=== PATIENT | female | born 1970 | race Caucasian/White ===

== ENCOUNTER 2024-11-29 22:04 | Inpatient (IN) | payer OTHER, SELFPAY ==
[2024-11-29 14:04] VITALS: BP 154/80
[2024-11-29 14:31] LABS: % Basophils 0.3 % (0-2); % Eosinophils 0.3 % (0-6); % Immature Granulocytes 0.3 % (0-0.5); % Lymphocytes 14.1 % (20.5-51.1); % Monocytes 8.5 % (1.7-9.3); % Neutrophils 76.5 % (42.2-75.2); Absolute Lymphocytes 1.9 10^3/uL (1.2-3.4); Absolute Monocytes 1.2 10^3/uL (0.1-0.6); Absolute Neutrophils 10.6 10^3/uL (1.4-6.5); Hematocrit 43.4 % (37.0-47.0); Hemoglobin 15.2 g/dL (12.0-16.0); Mean Corpuscular Volume 85.8 fL (81.0-99.0); Mean Platelet Volume 8.4 fL (7.4-10.4); Nucleated Red Blood Cells % 0 %; Platelet Count 480 10^3/uL (130-400); Red Blood Cell Count 5.06 10^6/uL (4.20-5.40); Red Cell Dist. Width 12.7 % (11.5-14.5); White Blood Cell Count 13.8 10^3/uL (4.8-10.8)
[2024-11-29 14:39] LABS: ALT (SGPT) 29 U/L (0-35); AST (SGOT) 19 U/L (14-36); Albumin 4.4 g/dl (3.5-5.0); Alkaline Phosphatase 71 U/L (38-126); Blood Urea Nitrogen 14 mg/dl (7-17); Carbon Dioxide 25 mmol/L (22-30); Chloride 105 mmol/L (98-107); Glucose 134 mg/dl (70-99); Potassium 5.2 mmol/L (3.5-5.1); Sodium 141 mmol/L (135-145); Total Bilirubin 0.9 mg/dl (0.2-1.3); Total Protein 7.5 g/dl (6.3-8.2); eGFR > 60.00
--- NOTE | 2024-11-29 16:35 | ED.GENMED ---
History of Present Illness
General
Chief Complaint: Oral/Mouth Problem
Source: patient
Exam Limitations: none
Time Seen by Provider: 11/29/24 16:04
Nursing documentation reviewed up to this point in time: agreed with
History of Present Illness
History of Present Illness:
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 Has been on
Bactrim since yesterday took a total of 3 doses. Denies any fevers has noticed swelling extending into her neck and lower jaw. Denies any chest pain shortness of breath
Review of Systems
Review of Systems
Allergies reviewed?: Yes
All Other Systems: ROS reviewed and negative except as documented in HPI and ROS
Phy Exam
Physical Exam
Physical Exam:
GENERAL: Alert , in no apparent distress
EYE: pupils equal and reactive
NECK: Supple, no significant adenopathy.
ENT: Swelling tenderness palpation to left lower lip no spontaneous drainage redness and swelling into the left chin and left lower jaw and left upper neck. o/p clr, mmm.
CARDIAC: Regular rate and rhythm .
LUNGS: Clear breath sounds bilaterally, no acute respiratory distress, no wheezes/rales/rhonchi
ABDOMEN: Soft, without focal tenderness, no r/g, no cvat
NEUROLOGICAL: Alert and oriented, no focal neuro deficits
SKIN: Warm and dry, skin intact.
MUSCULOSKELETAL: No edema, well perfused.
PSYCH: Normal and appropriate interaction.
Course
Orders/Labs/Results
Orders:
Orders
11/29/24 14:15
Complete Blood Count/With Diff Urgent
Comprehensive Metabolic Panel Urgent
Blood Culture Urgent
HIMANSHU Source: Blood/Venous
Specimen Description:
11/29/24 16:26
CT Facial Bones W/ Iv Contrast Urgent
Comment:
Reason For Exam: jaw lip abscess ext to chin neck
11/29/24 16:27
Vancomycin [Vancocin] 2,000 mg 0.9% Sodium Chloride 500 ml [Nss] 500 ml IV NOW
11/29/24 16:32
Lidocaine/Epinephrine/Tetracai [Let Topical Anesthetic Gel] 3 ml TOPICAL NOW STA
11/29/24 16:43
Ampicillin/Sulbactam 3 G [Unasyn] 3 gm 0.9% Sodium Chloride 100 ml [Nss] 100 ml IV NOW
11/29/24 18:02
HYDROmorphone [Dilaudid] 0.5 mg IV NOW STA
11/29/24 18:08
Wound Culture [Wound/Abscess/Other Culture] Urgent
HIMANSHU Source: Face
Specimen Description: Left
Date Specimen was Collected: 11/29/24
Time Specimen was Collected: 18:01
Abnormal Lab Results
11/29/24
14:15
WBC 13.8 H 10^3/uL
(4.8-10.8)
Plt Count 480 H 10^3/uL
(130-400)
Absolute Neuts (auto) 10.6 H 10^3/uL
(1.4-6.5)
Absolute Monos (auto) 1.2 H 10^3/uL
(0.1-0.6)
Neutrophils % 76.5 H %
(42.2-75.2)
Lymphocytes % 14.1 L %
(20.5-51.1)
Potassium 5.2 H mmol/L
(3.5-5.1)
Glucose 134 H mg/dl
(70-99)
11/29/24 14:15
11/29/24 14:15
Vital Signs
Initial and Last Documented VS:
Initial Vital Signs
Temp Pulse Resp BP Pulse Ox
97.9 F 106 18 154/80 98
11/29/24 14:04 11/29/24 14:04 11/29/24 14:04 11/29/24 14:04 11/29/24 14:04
Last Documented Vital Signs
Temp Pulse Resp BP Pulse Ox
98.6 F 102 18 122/75 99
11/29/24 19:48 11/29/24 19:48 11/29/24 19:48 11/29/24 19:48 11/29/24 19:48
Procedures
Incision/Drainage/Joint Aspiration
Left Lower Face:
Anethesia: topical- LET and 1% Lidocaine
Preparation: cleaned with soap & water
Type of procedure: incise and drain
Nature of site: abscess
Description of abscess: less than 3cm
Loculations broken up: Yes
How much fluid was obtained?: small amount
Fluid description: purulent
Treatment: left open for drainage
MDM/Problems Addressed
MDM/Problems Addressed:
53-year-old female presenting to the emergency department today with concerns of left lip swelling. Appears to consistent with an abscess. She has been on Bactrim for 2 days without improvement. Swelling is now extending into the left neck.
Initially tachycardic here white count of 13.8. Patient does have significant swelling fluctuance induration to the left lower lip. This was anesthetized and drained with a moderate amount of purulence. CT scan of the face was performed that
showed significant soft tissue edema to the left anterior jaw and mandible without obvious additional collection. Plan to admit for further antibiotic considering failed outpatient management and considerable cellulitis to the face and neck.
*Critical Care Note
Total Time (30-74mins, 75-104mins- exclusive of procedures): Not Applicable
ED Attending Note
-
Portions of this chart may have been created with voice recognition software.� Occasional wrong word or��sound alike� substitutions may have occurred due to the inherent limitations of voice recognition software.
Discharge Plan
Departure
Patient Disposition: Admit
Date of Disposition: 11/29/24
Time of Disposition: 20:09
Admit to: Med/Surg
Admit to doctor: Christopher
Presentation/result/management discussed w/ accepting MD/DO: Hospitalist
Patient with high blood pressure during this ER visit?: No
Condition: Good
Covid-19: Not Applicable
Discharge Problem:
Lip abscess, Cellulitis of face
Prescriptions:
No Action
famotidine 40 mg Tablet
40 mg PO HS
sulfamethoxazole-trimethoprim [Bactrim DS] 800-160 mg Tablet
1 tab PO BID
acetaminophen [Tylenol Extra Strength] 500 mg Tablet
1,000 mg PO Q6HPRN PRN (Reason: mild pain)
ibuprofen [Advil] 200 mg Tablet
400 mg PO Q6HPRN PRN (Reason: mild pain)
levothyroxine 200 mcg Tablet
200 mcg PO DAILY
mupirocin 2 % Ointment
1 applic TOPICAL BID
omeprazole 20 mg Capsule,Delayed Release(Dr/Ec)
20 mg PO DAILY
semaglutide
1 dose SC TH
Patient Comments:
11/29/24: Patient gets compouded online from [employer], unable to get/confirm current dosage.
Referrals:
Jazmín Rey CRNP [Family Provider] -
Interventions
Interventions:
*Risk Screen - Suicide Last Done: 11/29/24 14:04
*General Assessment Last Done: 11/29/24 14:04
*Neglect/Abuse Screening Last Done: 11/29/24 14:04
*ED COVID-19 Vaccine History Last Done: 11/29/24 14:04
Discharge Date and Time
Print Language: ICELANDIC
[2024-11-29 17:03] VITALS: BMI 27.7
[2024-11-29 17:12] VITALS: BP 137/85
[2024-11-29] MEDS: LET TOPICAL ANESTHETIC GEL 3 ML TOPICAL (17:19)
[2024-11-29] MEDS: UNASYN IV (17:22)
[2024-11-29] MEDS: DILAUDID 0.5 MG IV (18:05)
[2024-11-29] MEDS: VANCOCIN 540 MG IV (18:12)
[2024-11-29 19:48] VITALS: BP 122/75
--- NOTE | 2024-11-29 20:04 | HPS.HSE ---
Addendum entered and electronically signed by Latrell White DO 11/29/24 21:07:
Patient seen and examined independently. Agree with findings and plan as set forth by [employer].
Patient is a 53y F with PMH significant for hypothyroidism who presents c/o L facial pain, swelling and redness. Patient notes that symptoms started two days ago with a small, purulent lesion on the L lower lip. No known injury, trauma, etc.
Patient was seen by Dermatology and the area was lanced in the office. She was started on Bactrim and has taken 3 doses thus far. Patient woke this AM with significantly increased swelling and pain with pain and edema extending into the chin and L
cheek. Patient presented to the ED and had local incision with drainage of purulent material from the lip. She is having significant pain and shaking chills. No noted fever.
Ass:
L Lip / Facial Cellulitis
Sepsis secondary to the above
Hypothyroidism
GERD
Plan:
Admit for further evaluation and treatment.
Continue IV vancomycin pending culture data.
Supportive care including IVFs, pain control, cold application, etc.
Follow for clinical improvement.
CT done in the ED with no evidence of underlying fluid collection, abscess, etc.
Original Note:
Family Physician
-
Family Physician: Jazmín Rey
Chief Complaint
-
facial swelling and pain
History of Present Illness
Patient is a 53-year-old female with past medical history significant for hypothyroidism and GERD who presented to [facility] ED for evaluation of left sided facial swelling and pain. Patient reports 5 days ago she had a small pimple like
area on left lower lip, over weekend in grew slightly in size with discomfort so she made an appointment and saw dermatology yesterday who was able to drain some pus and prescribed Bactrim BID. This morning patient reports she had discomfort from
left lower lip to center of chin to lower left ear. 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 Patient reports significant pain and pressure to are. She denies any fever, chills, cough, shortness of breath, nausea,
vomiting, constipation, diarrhea or urinary symptoms. Patient notes she had similar lesion to left upper lip in end of October that was effectively treated with Bactrim.
Medical History
Past Medical History
Past Medical History: Reports Other
Additional Past Medical History:
hypothyroidism
GERD
Past Surgical History: Reports Other
Additional Past Surgical History:
appendectomy
hemorrhoidectomy
breast implants
removal of breast implants
Social History
Tobacco: Non-smoker
Alcohol: Occasional
Drug: None
Living: With Family
Employment: Employed
Family History
Family History: Other (Mother: mitral valve prolapse; Father: DM, glaucoma )
Allergies / Home Medications
Allergies reflects when Allergies were last updated in [facility].
Home Medications with original date entered in [facility]
Allergy/Medication List:
Allergies
Allergy/AdvReac Type Severity Reaction Status Date / Time
cephalexin monohydrate Allergy rash as Verified 11/29/24 17:02
[From Keflex] child,
tolerates
cefuroxime
Penicillins Allergy rash as a Verified 11/29/24 17:02
child
Home Medications
acetaminophen 500 mg tablet (Tylenol Extra Strength) 1,000 mg PO Q6HPRN PRN mild pain 11/29/24
famotidine 40 mg tablet 40 mg PO HS 11/29/24
ibuprofen 200 mg tablet (Advil) 400 mg PO Q6HPRN PRN mild pain 11/29/24
levothyroxine 200 mcg tablet 200 mcg PO DAILY 11/29/24
mupirocin 2 % topical ointment 1 applic topical BID lips 11/29/24
omeprazole 20 mg capsule,delayed release 20 mg PO DAILY 11/29/24
semaglutide 1 dose SC TH 11/29/24
sulfamethoxazole 800 mg-trimethoprim 160 mg tablet (Bactrim DS) 1 tab PO BID 11/29/24
Review of Systems
-
History Source: Patient
Constitutional: Reports No Symptoms
EENT: Reports Mouth Pain and Mouth Swelling (exterior left lower lip, to center of chin, extending up jaw line to left lower ear )
Respiratory: Reports No Symptoms
Cardiac: Reports No Symptoms
Abdomen/GI: Reports No Symptoms
: Reports No Symptoms
Musculoskeletal: Reports No Symptoms
Skin: Reports No Symptoms
Neurological: Reports No Symptoms
Endocrine: Reports No Symptoms
Hematologic/Lymphatic: Reports No Symptoms
Psych: Reports No Symptoms
Physical Exam
Vital Signs
Vital Signs
Temp Pulse Resp BP Pulse Ox
98.6 F 102 18 122/75 99
11/29/24 19:48 11/29/24 19:48 11/29/24 19:48 11/29/24 19:48 11/29/24 19:48
Physical Exam
General: Well Developed, Well Nourished, Conversant and Pain
HEENT: NormoCephalic, Moist mucous membranes, [place] Conjunctivae, Nose Appears Normal, Ears Appear Normal and Other (erythema with edema to exterior left lower lip, extending to center of chin, extending up jaw line to left lower ear )
Respiratory: Clear
Cardiac: S1/S2 and Regular Rhythm
Breast: Deferred by me
GI: Soft, Non Tender, Non Distended and Normal Bowel Sounds; No Organomegaly
Rectal: Deferred by Provider
Genito-urinary: Deferred by me
Musculoskeletal: No Clubbing, No Cyanosis and No Edema
Skin: No Rash
Neuro: Awake, Alert, AO x 3 and Nonfocal/grossly intact
Psych: Calm and Intact Judgment/Insight
Laboratory Results
-
11/29/24 14:15
11/29/24 14:15
Laboratory Results
Total Bilirubin 0.9 mg/dl (0.2-1.3) 11/29/24 14:15
AST 19 U/L (14-36) 11/29/24 14:15
ALT 29 U/L (0-35) 11/29/24 14:15
Alkaline Phosphatase 71 U/L (38-126) 11/29/24 14:15
Data Reviewed
-
CT Scan: Report Reviewed by me (Facial bones: 1. Moderate soft tissue edema over the anterior and left anterior jaw/mandible soft tissues consistent with cellulitis. No loculated fluid collections.)
Lab Data: Labs Reviewed by me (WBC 13.8, Neut 76.5)
Impression/Plan
-
IMPRESSION/PLAN:
#cellulitis
erythema and edema to exterior left lower lip, to center of chin, extending up jaw line to left lower ear
WBC 13.8, Neut 76.[address]: 1. Moderate soft tissue edema over the anterior and left anterior jaw/mandible soft tissues consistent with cellulitis. No loculated fluid collections.
Wound Cx: pending
Blood Cx: pending
- Admit to med/surg
- IV Clindamycin
- Ice packs PRN
- pain regimen
#hypothyroidism
- continue levothyroxine
#GERD
- continue famotidine and omeprazole
Code status: full code
DVT Prophylaxis: Lovenox Sq
[2024-11-29] MEDS: TYLENOL 1000 MG PO (20:33)
[2024-11-29] MEDS: BENADRYL 25 MG IV (21:27)
[2024-11-29 21:28] VITALS: BP 109/65
--- NOTE | 2024-11-29 21:30 | EDRN ---
the pt stated after Tylenol, her lower left lip pain is much improved 3/10 and she does not want to take the ordered dose of Dilaudid 0.5mg IVP STAT at this time, she wants to wait until later.
[2024-11-29 22:10] VITALS: BP 105/76; BMI 28.7
[2024-11-29] MEDS: NSS 1000 IV (22:26)
[2024-11-29] MEDS: PEPCID 40 MG PO (22:26)
[2024-11-29] MEDS: TORADOL 10 MG IV (22:32)
[2024-11-30] MEDS: TORADOL 10 MG IV ×2 (04:40→12:43)
[2024-11-30] MEDS: SYNTHROID 200 MCG PO (05:26)
[2024-11-30] MEDS: TYLENOL 650 MG PO ×3 (05:31→18:13)
[2024-11-30] MEDS: NSS 1000 IV (05:32)
[2024-11-30] MEDS: PROTONIX PO (07:38)
[2024-11-30 07:55] VITALS: BP 116/64
[2024-11-30 08:38] LABS: Hematocrit 33.6 % (37.0-47.0); Hemoglobin 11.9 g/dL (12.0-16.0); Mean Corp Hgb Conc. 35.4 g/dL (33.0-37.0); Mean Corpuscular Hgb 30.5 pg (27.0-31.0); Mean Corpuscular Volume 86.2 fL (81.0-99.0); Mean Platelet Volume 8.7 fL (7.4-10.4); Platelet Count 399 10^3/uL (130-400); Red Cell Dist. Width 12.7 % (11.5-14.5); White Blood Cell Count 11.5 10^3/uL (4.8-10.8)
--- NOTE | 2024-11-30 09:30 | PHA.VAN.IN ---
Assessment
- Assessment
Renal Function: Appears similar to baseline
AUC Dosing Plan
- Dosing Variables
Dosing Weight (kg): 71
Dosing CrCl (ml/min): 66
Vd coefficient (L/kg): 0.7
- Empiric Dosing
Initial / Loading Dose: 2000mg - 11/29 18:12
Maintenance Regimen: Vanc 750mg Q12H - give 500mg x1 now and start at 1800
Estimated AUC (mcg*h/mL): 525
Estimated Peak (mcg*h/mL): 29.7
Estimated Trough (mcg/ml): 15.5
Estimated Half Life (H): 11.7
- Monitoring
No levels ordered at this time: consider levels in next few days, follow SCR
Pharmacokinetics Vancomycin I
- -
Patient Age: 53
Patient Sex: Female
Vancomycin Day #: 1
Indication: Skin And Soft Tissue
Requesting Provider: Ruth Rodriguez
Pertinent Antimicrobial Allergies:
cephalexin - rash as a child, tolerates cefuroxime
penicillin - rash as a child
Height / Weight:
Height 5 ft 2 in
Actual Weight 70.987 kg
- Vital Signs / Lab Results
Temp Pulse Resp BP Pulse Ox
97.9 F 81 18 116/64 96
11/30/24 07:55 11/30/24 07:55 11/30/24 07:55 11/30/24 07:55 11/30/24 07:55
Lab Results - Hematology
11/29/24 11/30/24
14:15 06:32
WBC 13.8 H 11.5 H
Lab Results - Chemistry
11/29/24
14:15
BUN 14
Creatinine 0.9
Albumin 4.4
[2024-11-30] MEDS: VANCOCIN HCL 500 MG 100 IV (10:17)
[2024-11-30] MEDS: DILAUDID 0.5 MG IV (10:21)
--- NOTE | 2024-11-30 11:46 | W.PN.HOSP.TC ---
Today's Communication/Plan
-
cont IV vancomycin-pharmacy to dose
ice pack
monitor diet tolerance
Assessment / Plan
Assessment / Plan
General: Well Developed, Well Nourished, Conversant and Pain
HEENT: NormoCephalic, Moist mucous membranes, [place] Conjunctivae, Nose Appears Normal, Ears Appear Normal and Other (erythema with edema to exterior left lower lip, extending to center of chin, extending up jaw line to left lower ear )
Respiratory: Clear
Cardiac: S1/S2 and Regular Rhythm
Breast: Deferred by me
GI: Soft, Non Tender, Non Distended and Normal Bowel Sounds; No Organomegaly
Rectal: Deferred by Provider
Genito-urinary: Deferred by me
Musculoskeletal: No Clubbing, No Cyanosis and No Edema
Skin: No Rash
Neuro: Awake, Alert, AO x 3 and Nonfocal/grossly intact
Psych: Calm and Intact Judgment/Insight
#L Lip / Facial Cellulitis
Facial bones CT: 1. Moderate soft tissue edema over the anterior and left anterior jaw/mandible soft tissues consistent with cellulitis. No loculated fluid collections.
Wound Cx from ER w/MRSA prelim
Blood Cx: pending
-After initial lesion with started on the lower lip patient went to dermatology status post lancing. Took 3 dose of Bactrim without improvement and was recommended to come into the hospital.
- IV vancomycin. Appreciate pharmacy managing dosing.
- Ice packs PRN
- pain regimen
#hypothyroidism
- continue levothyroxine
#GERD
- continue famotidine and omeprazole
#Mild hyperkalemia
-repeat bmp
Anticipated Discharge: 24 - 48 hours
Subjective/Interval History
-
Date of Service: November 30, 2024
States of left side lower face swelling and lip swelling
eating soft food
Objective Data
-
Labs:
Laboratory Results
11/30/24
06:32
WBC 11.5 H
Hgb 11.9 L D
Hct 33.6 L
Plt Count 399
Vital Signs:
Vital Signs
Temp Pulse Resp BP Pulse Ox
97.9 F 81 18 116/64 98
11/30/24 07:55 11/30/24 07:55 11/30/24 07:55 11/30/24 07:55 11/30/24 11:30
I&O
11/29/24 11/30/24 12/01/24
06:59 06:59 06:59
Intake Total 480 / 480
Balance 480 / 480
[2024-11-30 15:08] LABS: Blood Urea Nitrogen 10 mg/dl (7-17); Calcium 8.6 mg/dl (8.4-10.2); Carbon Dioxide 26 mmol/L (22-30); Chloride 108 mmol/L (98-107); Estimated Creatinine Clearance 74 ml/min; Glucose 96 mg/dl (70-99); Potassium 4.5 mmol/L (3.5-5.1); Sodium 139 mmol/L (135-145); eGFR > 60.00
--- NOTE | 2024-11-30 15:13 | CM ---
Patient seen bedside.
IA completed.
Patient lives with spouse in a 2 story home.
Independent prior to admission.
Patient drives and works.
No hx VN or skilled rehab.
Patient aware of CM availability should home care needs arise.
PCP: Candido
Pharmacy: [facility]
Plan: home no needs anticipated
[2024-11-30 16:04] VITALS: BP 105/63
[2024-11-30] MEDS: LOVENOX 40 MG SC (18:11)
[2024-11-30] MEDS: MORPHINE SULFATE 1 MG IV (18:12)
[2024-11-30] MEDS: VANCOCIN 150 IV (18:14)
[2024-11-30] MEDS: TORADOL 30 MG IV (18:30)
[2024-11-30 19:59] VITALS: BP 123/78
--- NOTE | 2024-11-30 20:00 | PTCARENOTE ---
patient arrived from [facility] due to needing a private room for + MRSA culture results. patient ambulatory with no devices. complains of improved pain due to IV Toradol and Tylenol administration. VSS. IV Vanco completed, patient informed that next
vanco dose is due 12/01 at 0600. Left lower lip and jaw with +2 edema, warm to the touch and red. Patient with positive appetite. Denies nausea/vomiting/diarrhea. All patient needs met. Bed in lowest position. No bed alarm in place. Call archuleta and
personal belongings within reach.
[2024-11-30] MEDS: PEPCID 40 MG PO (20:44)
[2024-12-01 00:05] VITALS: BP 103/73
[2024-12-01] MEDS: TYLENOL 650 MG PO ×2 (00:47→16:54)
[2024-12-01] MEDS: TORADOL 30 MG IV ×3 (01:48→18:21)
[2024-12-01] MEDS: SYNTHROID 200 MCG PO (05:48)
[2024-12-01] MEDS: VANCOCIN 150 IV ×2 (05:48→16:59)
[2024-12-01 07:00] VITALS: BP 117/81
[2024-12-01] MEDS: PROTONIX 40 MG PO (08:39)
[2024-12-01 09:21] LABS: % Basophils 0.4 % (0-2); % Eosinophils 2.1 % (0-6); % Immature Granulocytes 0.4 % (0-0.5); % Lymphocytes 24.2 % (20.5-51.1); % Monocytes 14.3 % (1.7-9.3); % Neutrophils 58.6 % (42.2-75.2); Absolute Eosinophils 0.1 10^3/uL (0-0.7); Absolute Lymphocytes 1.6 10^3/uL (1.2-3.4); Absolute Neutrophils 3.9 10^3/uL (1.4-6.5); Hemoglobin 12.4 g/dL (12.0-16.0); Mean Corp Hgb Conc. 34.4 g/dL (33.0-37.0); Mean Corpuscular Volume 87.2 fL (81.0-99.0); Mean Platelet Volume 8.4 fL (7.4-10.4); Nucleated Red Blood Cells % 0 %; Platelet Count 408 10^3/uL (130-400); Red Blood Cell Count 4.13 10^6/uL (4.20-5.40); Red Cell Dist. Width 12.7 % (11.5-14.5); White Blood Cell Count 6.7 10^3/uL (4.8-10.8)
[2024-12-01 09:50] LABS: Blood Urea Nitrogen 9 mg/dl (7-17); Calcium 9.3 mg/dl (8.4-10.2); Carbon Dioxide 25 mmol/L (22-30); Chloride 107 mmol/L (98-107); Estimated Creatinine Clearance 99 ml/min; Glucose 95 mg/dl (70-99); Potassium 4.8 mmol/L (3.5-5.1); Sodium 141 mmol/L (135-145); eGFR > 60.00
--- NOTE | 2024-12-01 10:20 | PHA.VAN.FU ---
Vancomycin Assessment / Plan
- Assessment
Renal Function: Stable (0.6)
WBC's are: WNL
In the past 24 hrs, patient has been: Afebrile
- Dosing Plan
Continue: vancomycin 750 mg q12h
- Monitoring Plan
No level(s) ordered at this time: consider levels in next few days
- Follow Up
Pharmacy will continue to follow.
Vancomycin Follow UP
- -
Patient Age: 53
Patient Sex: Female
Vancomycin Day #: 2
Indication: Skin And Soft Tissue
Requesting Provider: Ruth Rodriguez
Pertinent Antimicrobial Allergies:
cephalexin - rash as a child, tolerates cefuroxime
penicillin - rash as a child
Height / Weight:
Height 5 ft 2 in
Actual Weight 70.987 kg
- Vital Signs / Lab Results
Temp Pulse Resp BP Pulse Ox
98.8 F 81 18 103/73 95
12/01/24 00:05 12/01/24 00:05 12/01/24 00:05 12/01/24 00:05 12/01/24 00:05
Lab Results - Hematology
11/29/24 11/30/24 12/01/24
14:15 06:32 09:03
WBC 13.8 H 11.5 H 6.7
Lab Results - Chemistry
11/29/24 11/30/24 12/01/24
14:15 14:08 09:03
BUN 14 10 9
Creatinine 0.9 0.8 0.6
Estimated Creat Clear 74 99
Albumin 4.4
Microbiology Results
11/29/24 18:08 Wound Culture - Final
Face - Left Staph aureus MRSA
Gram Stain - Final
11/29/24 14:15 Blood Culture - Preliminary
Blood/Venous Staph aureus MRSA
Gram Stain - Preliminary
--- NOTE | 2024-12-01 12:53 | W.PN.HOSP.TC ---
Today's Communication/Plan
-
IV vanc
TTE
Await culture
ID input
cont precautions
Assessment / Plan
Assessment / Plan
General: Well Developed, Well Nourished, Conversant and Pain
HEENT: NormoCephalic, Moist mucous membranes, [place] Conjunctivae, Nose Appears Normal, Ears Appear Normal and Other (encrusting lesion to lower lip, with erythema and mild drainge. Left side jaw line edema improved)
Respiratory: Clear
Cardiac: S1/S2 and Regular Rhythm
Breast: Deferred by me
GI: Soft, Non Tender, Non Distended and Normal Bowel Sounds; No Organomegaly
Rectal: Deferred by Provider
Genito-urinary: Deferred by me
Musculoskeletal: No Clubbing, No Cyanosis and No Edema
Skin: No Rash
Neuro: Awake, Alert, AO x 3 and Nonfocal/grossly intact
Psych: Calm and Intact Judgment/Insight
#L Lip / Facial Cellulitis/MRSA bacteremia
Facial bones CT: 1. Moderate soft tissue edema over the anterior and left anterior jaw/mandible soft tissues consistent with cellulitis. No loculated fluid collections.
Wound Cx from ER w/MRSA
-After initial lesion with started on the lower lip patient went to dermatology status post lancing. Took 3 dose of Bactrim without improvement and was recommended to come into the hospital.
- IV vancomycin. Appreciate pharmacy managing dosing.
- Ice packs PRN
- pain regimen
- seems only 1 set of Bcx checked on admission-positive for MRSA.
- Surveillance culture ordered and in lab
- wound culture susceptibility noted sensitive to vancomycin. Unclear if plan for daptomycin
- Leukocytosis resolved.
- ECHO
- ID eval
#hypothyroidism
- continue levothyroxine
#GERD
- continue famotidine and omeprazole
#Mild hyperkalemia
-resolved.
d/w with spouse at bedside
DVT ppx-lovenox
Anticipated Discharge: > 48 hours
Subjective/Interval History
-
Date of Service: December 01, 2024
appetite has improved
encrusting of lip wound
swelling of jaw has improved
Objective Data
-
Labs:
Laboratory Results
12/01/24
09:03
WBC 6.7
Hgb 12.4
Hct 36.0 L
Plt Count 408 H
Sodium 141
Potassium 4.8
Chloride 107
Carbon Dioxide 25
BUN 9
Creatinine 0.6
Glucose 95
Calcium 9.3
Vital Signs:
Vital Signs
Temp Pulse Resp BP Pulse Ox
97.8 F 77 18 117/81 96
12/01/24 07:00 12/01/24 07:00 12/01/24 07:00 12/01/24 07:00 12/01/24 07:00
I&O
11/30/24 12/01/24 12/02/24
06:59 06:59 06:59
Intake Total 480 / 480 580 / 580
Balance 480 / 480 580 / 580
Data Reviewed
-
Total Time Spent with Patient (in minutes): 55
[2024-12-01 15:00] VITALS: BP 141/86
--- NOTE | 2024-12-01 15:25 | CON.ID ---
Consultation
-
Date/Time Consultation Requested: December 01, 2024 0847
Date/Time Consultation Performed: December 01, 2024 1526
Requesting Provider: Dr. Og Pierce
Performing Provider: Dr. Batsheva Baldwin
Reason for Consultation: Facial cellulitis
Chief Complaint / Past History
Chief Complaint
Abscess on lip
History of Present Illness
53-year-old female with history of hypothyroidism who presented to the hospital November 29 due to spreading erythema and enlarging lesion over lower lip. She reports that she was recently in [place] for vacation and she went to a spa for facial. Soon
after she developed an abscess over her left upper lip 2 weeks ago. Her PCP recommended warm compress and prescribed Bactrim with subsequent resolution of the abscess. However last Wednesday a pimple-like lesion developed over her left lower lip
which enlarged over the weekend. She did put warm compress without improvement. She went to her invasive cardiovascular technologist on Wednesday who lanced the abscess and she was prescribed Bactrim. Wednesday, she noticed several abscesses on her lower lip and erythema
extended down to her chin and face with significant pain and edema. She went back to her invasive cardiovascular technologist who sent her to the ER. No fever. However patient had shaking chills. In ER the abscess was lanced and drained. CAT scan of the face showed
no deep fluid collection. Culture grew MRSA. She is started on vancomycin yesterday. Admission blood culture 1 set positive for MRSA. She just came back from echocardiogram. Patient denies history of MRSA in the past. She believes that she
contracted MRSA from the facial at [facility].
Past History
Additional Past Medical History:
Hypothyroidism
GERD
Additional Past Surgical History:
Appendectomy
Breast implants with subsequent removal
Hemorrhoidectomy
Allergy History:
cephalexin monohydrate [From Keflex] Allergy (Verified 11/29/24 17:02)
rash as child, tolerates cefuroxime
Penicillins Allergy (Verified 11/29/24 17:02)
rash as a child
Medications Reviewed: Yes
Current Antibiotics:
Vancomycin day 2
Social History
Tobacco: Non-Smoker
Alcohol: Occasional
Drug: None
Personal:
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
Family History
Family History: Not Pertinent
Review of Systems
Review of Systems
General: Chills; Negative Fever
HEENT: Negative Sinus Problems, Headache or Pharyngitis
Cardiovascular: Negative Chest Pain or Dyspnea
Respiratory: Negative Dyspnea or Cough
Gasteroenterology: Negative Nausea, Vomiting or Diarrhea
Genital / Urological: Negative Dysuria
Endocrine: Negative Weakness
Neurological: Negative Headache or Dizziness
All systems: All other systems were reviewed and were negative
Vital Signs
Temp Pulse Resp BP Pulse Ox
97.8 F 77 18 117/81 96
12/01/24 07:00 12/01/24 07:00 12/01/24 07:00 12/01/24 07:00 12/01/24 07:00
Physical Exam
Physical Exam
Constitutional: No Acute Distress and Comfortable
Head: Other (left lower lip with significant induration, drained wound dry, + erythema extends to chin, mild induration left mandible)
Eyes: Sclera Anicteric
Cardiovascular: Regular Rate and S1/S2
Pulmonary: Clear
Gastrointestinal: Non Tender, Non Distended and Normal Bowel Sounds
Genito-Urinary: Negative CVA Tenderness
Extremities: Negative Edema
Neurological: AO x 3
Lab / Diagnostic Study Results
12/01/24 09:03
12/01/24 09:03
Abs Immat Gran (auto) 0.0 10^3/uL (0-0.05) 12/01/24 09:03
Absolute Neuts (auto) 3.9 10^3/uL (1.4-6.5) 12/01/24 09:03
Absolute Lymphs (auto) 1.6 10^3/uL (1.2-3.4) 12/01/24 09:03
Absolute Monos (auto) 1.0 10^3/uL (0.1-0.6) H 12/01/24 09:03
Absolute Basos (auto) 0.0 10^3/uL (0-0.2) 12/01/24 09:03
Immature Gran % 0.4 % (0-0.5) 12/01/24 09:03
Neutrophils % 58.6 % (42.2-75.2) 12/01/24 09:03
Lymphocytes % 24.2 % (20.5-51.1) 12/01/24 09:03
Monocytes % 14.3 % (1.7-9.3) H 12/01/24 09:03
Eosinophils % 2.1 % (0-6) 12/01/24 09:03
Basophils % 0.4 % (0-2) 12/01/24 09:03
Microbiology Results
Micro:
11/29/24 14:15 Blood Culture - Preliminary
Blood/Venous Staph aureus MRSA
Gram Stain - Preliminary
11/29/24 18:08 Wound Culture - Final
Face - Left Staph aureus MRSA
Gram Stain - Final
11/30/24 17:47 Blood Culture - Pending
Blood/Venous
11/30/24 17:47 Blood Culture - Pending
Blood/Venous
12/01/24 CT facial bone: Moderate soft tissue edema over the anterior and left anterior jaw/mandible soft tissues consistent with cellulitis. No loculated fluid collections.
Assessment / Plan
# MRSA abscess left lower lip with cellulitis
# MRSA bacteremia (1 of 1 set)
# Leukocytosis resolved.
- TTE no gross vegetation.
- Follow repeat blood cx's.
- Continue Vancomycin for now (d2)
- Continue warm compress.
[2024-12-01] MEDS: LOVENOX 40 MG SC (16:59)
[2024-12-01] MEDS: PEPCID 40 MG PO (22:01)
[2024-12-01 23:34] VITALS: BP 135/80
[2024-12-02] MEDS: VANCOCIN 150 IV ×2 (05:29→17:15)
[2024-12-02] MEDS: SYNTHROID 200 MCG PO (05:29)
[2024-12-02 06:30] LABS: % Basophils 0.7 % (0-2); % Eosinophils 3.8 % (0-6); % Immature Granulocytes 0.3 % (0-0.5); % Lymphocytes 35.1 % (20.5-51.1); % Monocytes 14.4 % (1.7-9.3); % Neutrophils 45.7 % (42.2-75.2); Absolute Eosinophils 0.2 10^3/uL (0-0.7); Absolute Monocytes 0.8 10^3/uL (0.1-0.6); Absolute Neutrophils 2.6 10^3/uL (1.4-6.5); Hematocrit 34.3 % (37.0-47.0); Hemoglobin 11.9 g/dL (12.0-16.0); Mean Corp Hgb Conc. 34.7 g/dL (33.0-37.0); Mean Corpuscular Hgb 29.9 pg (27.0-31.0); Mean Corpuscular Volume 86.2 fL (81.0-99.0); Mean Platelet Volume 8.4 fL (7.4-10.4); Nucleated Red Blood Cells % 0 %; Platelet Count 405 10^3/uL (130-400); Red Blood Cell Count 3.98 10^6/uL (4.20-5.40); Red Cell Dist. Width 12.4 % (11.5-14.5); White Blood Cell Count 5.8 10^3/uL (4.8-10.8)
[2024-12-02 07:00] VITALS: BP 124/73
[2024-12-02 07:02] LABS: Blood Urea Nitrogen 10 mg/dl (7-17); Calcium 9.1 mg/dl (8.4-10.2); Carbon Dioxide 27 mmol/L (22-30); Chloride 105 mmol/L (98-107); Estimated Creatinine Clearance 85 ml/min; Glucose 105 mg/dl (70-99); Potassium 4.5 mmol/L (3.5-5.1); Sodium 141 mmol/L (135-145); eGFR > 60.00
[2024-12-02] MEDS: TYLENOL 650 MG PO ×3 (07:47→21:21)
[2024-12-02] MEDS: PROTONIX 40 MG PO (07:47)
--- NOTE | 2024-12-02 09:13 | W.PN.ID1 ---
Date of Service
Date of Service: December 02, 2024
Today's Communication
Continue Vancomycin.
Assessment / Plan
# MRSA abscess left lower lip with cellulitis
# MRSA bacteremia (1 of 1 set)
# Leukocytosis resolved.
- TTE no gross vegetation.
- repeat blood cx's x 2 NGTD
- Continue Vancomycin for now (d3)
- Continue warm compress.
Chief Complaint
-: Other (MRSA abscess)
Subjective / Review of Systems
c/o left neck pain
Vital Signs / Physical Exam
Vital Signs
Vital Signs
Temp Pulse Resp BP Pulse Ox
98.1 F 73 18 135/80 97
12/01/24 23:34 12/01/24 23:34 12/01/24 23:34 12/01/24 23:34 12/01/24 23:34
Physical Exam
Constitutional: No Acute Distress and Comfortable
Eyes: No Conjunctival Hemorrhage and Sclera Anicteric
Oropharyngeal: Other (left lower lip abscess wound less indurated, with erythema down chin)
Lymph Nodes: Lymphadenopathy (left cervical chain)
Cardiovascular: Regular Rate
Pulmonary: Clear
Gastrointestinal: Soft, Non Tender, Non Distended and Normal Bowel Sounds
Extremities: Negative Edema
Neurological: AO x 3
Objective Data
Lab Data
Lab Results
12/02/24 05:52
12/02/24 05:52
Estimated Creat Clear 85 ml/min 12/02/24 05:52
Total Bilirubin 0.9 mg/dl (0.2-1.3) 11/29/24 14:15
AST 19 U/L (14-36) 11/29/24 14:15
ALT 29 U/L (0-35) 11/29/24 14:15
Alkaline Phosphatase 71 U/L (38-126) 11/29/24 14:15
Most recent labs reviewed.
Micro Results:
11/29/24 14:15 Blood Culture - Preliminary
Blood/Venous Staph aureus MRSA
Gram Stain - Preliminary
11/30/24 17:47 Blood Culture - Preliminary
Blood/Venous No Growth in 24 hours- Final report to follow
11/30/24 17:47 Blood Culture - Preliminary
Blood/Venous No Growth in 24 hours- Final report to follow
11/29/24 18:08 Wound Culture - Final
Face - Left Staph aureus MRSA
Gram Stain - Final
12/01/24 CT facial bone: Moderate soft tissue edema over the anterior and left anterior jaw/mandible soft tissues consistent with cellulitis. No loculated fluid collections.
--- NOTE | 2024-12-02 10:34 | PHA.VAN.FU ---
Vancomycin Assessment / Plan
- Assessment
Renal Function: Stable
WBC's are: Trending Down
In the past 24 hrs, patient has been: Afebrile
- Dosing Plan
Continue: Vanc 750mg IV Q12H
- Monitoring Plan
Peak Level: 12/02 at 2030
Trough Level: 12/03 at 0530
- Follow Up
Pharmacy will continue to follow.
Vancomycin Follow UP
- -
Patient Age: 53
Patient Sex: Female
Vancomycin Day #: 3
Indication: Skin And Soft Tissue
Requesting Provider: Ruth Rodriguez
Pertinent Antimicrobial Allergies:
cephalexin - rash as a child, tolerates cefuroxime
penicillin - rash as a child
Height / Weight:
Height 5 ft 2 in
Actual Weight 70.987 kg
- Vital Signs / Lab Results
Temp Pulse Resp BP Pulse Ox
97.9 F 78 18 124/73 97
12/02/24 07:00 12/02/24 07:00 12/02/24 07:00 12/02/24 07:00 12/02/24 07:00
Lab Results - Hematology
11/29/24 11/30/24 12/01/24
14:15 06:32 09:03
WBC 13.8 H 11.5 H 6.7
12/02/24
05:52
WBC 5.8
Lab Results - Chemistry
11/29/24 11/30/24 12/01/24
14:15 14:08 09:03
BUN 14 10 9
Creatinine 0.9 0.8 0.6
Estimated Creat Clear 74 99
Albumin 4.4
12/02/24
05:52
BUN 10
Creatinine 0.7
Estimated Creat Clear 85
Albumin
Microbiology Results
11/29/24 14:15 Blood Culture - Preliminary
Blood/Venous Staph aureus MRSA
Gram Stain - Preliminary
11/30/24 17:47 Blood Culture - Preliminary
Blood/Venous No Growth in 24 hours- Final report to follow
11/30/24 17:47 Blood Culture - Preliminary
Blood/Venous No Growth in 24 hours- Final report to follow
11/29/24 18:08 Wound Culture - Final
Face - Left Staph aureus MRSA
Gram Stain - Final
--- NOTE | 2024-12-02 11:36 | W.PN.HOSP.TC ---
Today's Communication/Plan
-
Continue with IV vancomycin
Pharmacy manage dosing
Await surveillance culture results
Warm compresses bid
Vanc dosing level to be checked tonight
Assessment / Plan
Assessment / Plan
General: Well Developed, Well Nourished, Conversant and Pain
HEENT: NormoCephalic, Moist mucous membranes, [place] Conjunctivae, Nose Appears Normal, Ears Appear Normal and Other (encrusting lesion to lower lip, with erythema and mild drainage. Left side jaw line edema resolved. Mild chin erythema and edema
Respiratory: Clear
Cardiac: S1/S2 and Regular Rhythm
Breast: Deferred by me
GI: Soft, Non Tender, Non Distended and Normal Bowel Sounds; No Organomegaly
Rectal: Deferred by Provider
Genito-urinary: Deferred by me
Musculoskeletal: No Clubbing, No Cyanosis and No Edema
Skin: No Rash
Neuro: Awake, Alert, AO x 3 and Nonfocal/grossly intact
Psych: Calm and Intact Judgment/Insight
#L Lip / Facial Cellulitis/MRSA bacteremia
Facial bones CT: 1. Moderate soft tissue edema over the anterior and left anterior jaw/mandible soft tissues consistent with cellulitis. No loculated fluid collections.
Wound Cx from ER w/MRSA
-After initial lesion with started on the lower lip patient went to dermatology status post lancing. Took 3 dose of Bactrim without improvement and was recommended to come into the hospital.
- IV vancomycin. Appreciate pharmacy managing dosing.
- Ice packs PRN
- pain regimen
- seems only 1 set of Bcx checked on admission-positive for MRSA. Susceptibility noted
- Surveillance culture ordered and in lab remains negative so far
- wound culture susceptibility noted sensitive to vancomycin. Unclear if plan for daptomycin
- Leukocytosis resolved.
- ECHO negative for vegetation. Warm compresses recommended BID.
- ID ID following
#hypothyroidism
- continue levothyroxine
#GERD
- continue famotidine and omeprazole
#Mild hyperkalemia
-resolved.
d/w with spouse at bedside on 12/01/2024
DVT ppx-lovenox
Anticipated Discharge: 24 - 48 hours
Subjective/Interval History
-
Date of Service: December 02, 2024
states of mild headache
states of swelling has improved on jaw line
Objective Data
-
Labs:
Laboratory Results
12/02/24
05:52
WBC 5.8
Hgb 11.9 L
Hct 34.3 L
Plt Count 405 H
Sodium 141
Potassium 4.5
Chloride 105
Carbon Dioxide 27
BUN 10
Creatinine 0.7
Glucose 105 H
Calcium 9.1
Vital Signs:
Vital Signs
Temp Pulse Resp BP Pulse Ox
97.9 F 78 18 124/73 97
12/02/24 07:00 12/02/24 07:00 12/02/24 07:00 12/02/24 07:00 12/02/24 07:00
I&O
12/01/24 12/02/24 12/03/24
06:59 06:59 06:59
Intake Total 580 / 580 0 / 0
Balance 580 / 580 0 / 0
[2024-12-02 15:00] VITALS: BP 130/80
[2024-12-02] MEDS: LOVENOX 40 MG SC (17:14)
[2024-12-02] MEDS: PEPCID 40 MG PO (21:19)
[2024-12-02 23:50] VITALS: BP 116/70
[2024-12-03 05:48] LABS: % Basophils 0.8 % (0-2); % Eosinophils 2.7 % (0-6); % Immature Granulocytes 0.2 % (0-0.5); % Lymphocytes 37.1 % (20.5-51.1); % Monocytes 11.7 % (1.7-9.3); % Neutrophils 47.5 % (42.2-75.2); Absolute Eosinophils 0.1 10^3/uL (0-0.7); Absolute Lymphocytes 1.9 10^3/uL (1.2-3.4); Absolute Monocytes 0.6 10^3/uL (0.1-0.6); Absolute Neutrophils 2.5 10^3/uL (1.4-6.5); Hematocrit 36.2 % (37.0-47.0); Hemoglobin 12.5 g/dL (12.0-16.0); Mean Corp Hgb Conc. 34.5 g/dL (33.0-37.0); Mean Corpuscular Hgb 29.7 pg (27.0-31.0); Mean Platelet Volume 8.5 fL (7.4-10.4); Nucleated Red Blood Cells % 0 %; Platelet Count 436 10^3/uL (130-400); Red Blood Cell Count 4.21 10^6/uL (4.20-5.40); Red Cell Dist. Width 12.4 % (11.5-14.5); White Blood Cell Count 5.2 10^3/uL (4.8-10.8)
[2024-12-03 06:03] LABS: Vancomycin Trough 7.6 ug/ml (5-20)
[2024-12-03 06:06] LABS: Blood Urea Nitrogen 9 mg/dl (7-17); Calcium 9.4 mg/dl (8.4-10.2); Carbon Dioxide 29 mmol/L (22-30); Chloride 107 mmol/L (98-107); Estimated Creatinine Clearance 85 ml/min; Glucose 97 mg/dl (70-99); Potassium 4.6 mmol/L (3.5-5.1); Sodium 142 mmol/L (135-145); eGFR > 60.00
[2024-12-03] MEDS: VANCOCIN 150 IV (06:13)
[2024-12-03] MEDS: SYNTHROID 200 MCG PO (06:13)
[2024-12-03] MEDS: TYLENOL 650 MG PO (06:23)
[2024-12-03] MEDS: PROTONIX 40 MG PO (07:34)
[2024-12-03 07:42] VITALS: BP 122/75
--- NOTE | 2024-12-03 07:51 | PHA.VAN.FU ---
Vancomycin Assessment / Plan
- Assessment
Renal Function: Stable
WBC's are: Trending Down
In the past 24 hrs, patient has been: Afebrile
- Assessment - Therapeutic Drug Monitoring
Extrapolated Cmax (mcg/mL): 19.6
Peak level was drawn: Appropriately
Extrapolated Cmin (mcg/mL): 7.7
Trough Drawn: Appropriately
Levels were drawn: At steady state
Calculated AUC (mcg*h/mL): 308
Calculated ke: 0.0852
Calculated half life (H): 8.1
Calculated Vd (L): 57.18
Calculated Vanc CL (ml/min): 81.23
- Dosing Plan
Adjust Regimen to: Vanc 1gm IV Q12H
New Regimen Predicts: AUC (428), Peak (27.3), Trough (10.7)
- Monitoring Plan
Level(s) appropriate: Recheck trough at minimum of weekly intervals, Repeat sooner for changes in renal function or clinical status
- Follow Up
Pharmacy will continue to follow.
Vancomycin Follow UP
- -
Patient Age: 53
Patient Sex: Female
Vancomycin Day #: 4
Indication: Skin And Soft Tissue
Requesting Provider: Ruth Rodriguez
Pertinent Antimicrobial Allergies:
cephalexin - rash as a child, tolerates cefuroxime
penicillin - rash as a child
Height / Weight:
Height 5 ft 2 in
Actual Weight 70.987 kg
- Vital Signs / Lab Results
Temp Pulse Resp BP Pulse Ox
98.2 F 77 18 116/70 98
12/02/24 23:50 12/02/24 23:50 12/02/24 23:50 12/02/24 23:50 12/02/24 23:50
Lab Results - Hematology
11/30/24 12/01/24 12/02/24
06:32 09:03 05:52
WBC 11.5 H 6.7 5.8
12/03/24
05:23
WBC 5.2
Lab Results - Chemistry
11/30/24 12/01/24 12/02/24
14:08 09:03 05:52
BUN 10 9 10
Creatinine 0.8 0.6 0.7
Estimated Creat Clear 74 99 85
12/03/24
05:23
BUN 9
Creatinine 0.7
Estimated Creat Clear 85
Microbiology Results
11/30/24 17:47 Blood Culture - Preliminary
Blood/Venous No Growth in 48 hours- Final report to follow
11/30/24 17:47 Blood Culture - Preliminary
Blood/Venous No Growth in 48 hours- Final report to follow
11/29/24 14:15 Blood Culture - Preliminary
Blood/Venous Staph aureus MRSA
Gram Stain - Preliminary
11/29/24 18:08 Wound Culture - Final
Face - Left Staph aureus MRSA
Gram Stain - Final
Therapeutic Drug Monitoring
Vancomycin Peak 16.0 ug/ml (18-26) L 12/02/24 20:39
Vancomycin Trough 7.6 ug/ml (5-20) 12/03/24 05:23
--- NOTE | 2024-12-03 09:16 | W.PN.ID1 ---
Date of Service
Date of Service: December 03, 2024
Today's Communication
Transition Vancomycin for now (d4) to linezolid 600mg po bid through 12/13/24
Assessment / Plan
# MRSA abscess left lower lip with cellulitis s/p drainage in ED
# Uncomplicated MRSA bacteremia (1 of 1 set)
# Leukocytosis resolved.
- TTE no gross vegetation.
- repeat blood cx's x 2 NGTD
- Transition Vancomycin for now (d4) to linezolid 600mg po bid through 12/13/24
Avoid tyramine-rich food products while on linezolid.
- Continue warm compress.
Chief Complaint
-: Other (MRSA abscess)
Subjective / Review of Systems
Face better.
Vital Signs / Physical Exam
Vital Signs
Vital Signs
Temp Pulse Resp BP Pulse Ox
98.7 F 66 16 122/75 98
12/03/24 07:42 12/03/24 07:42 12/03/24 07:42 12/03/24 07:42 12/03/24 07:42
Physical Exam
Constitutional: No Acute Distress and Comfortable
Eyes: No Conjunctival Hemorrhage and Sclera Anicteric
Oropharyngeal: Other (left lower lip abscess wound less indurated, resolving erythema down chin; firm induration left submental)
Lymph Nodes: Lymphadenopathy (left cervical chain)
Cardiovascular: Regular Rate
Pulmonary: Clear
Gastrointestinal: Soft, Non Tender, Non Distended and Normal Bowel Sounds
Extremities: Negative Edema
Neurological: AO x 3
Objective Data
Lab Data
Lab Results
12/03/24 05:23
12/03/24 05:23
Estimated Creat Clear 85 ml/min 12/03/24 05:23
Total Bilirubin 0.9 mg/dl (0.2-1.3) 11/29/24 14:15
AST 19 U/L (14-36) 11/29/24 14:15
ALT 29 U/L (0-35) 11/29/24 14:15
Alkaline Phosphatase 71 U/L (38-126) 11/29/24 14:15
Most recent labs reviewed.
Micro Results:
11/30/24 17:47 Blood Culture - Preliminary
Blood/Venous No Growth in 48 hours- Final report to follow
11/30/24 17:47 Blood Culture - Preliminary
Blood/Venous No Growth in 48 hours- Final report to follow
11/29/24 14:15 Blood Culture - Preliminary
Blood/Venous Staph aureus MRSA
Gram Stain - Preliminary
11/29/24 18:08 Wound Culture - Final
Face - Left Staph aureus MRSA
Gram Stain - Final
12/01/24 CT facial bone: Moderate soft tissue edema over the anterior and left anterior jaw/mandible soft tissues consistent with cellulitis. No loculated fluid collections.
Care Review
Plan reviewed with: Physician (Dr. iPerce)
--- NOTE | 2024-12-03 10:02 | W.PN.HOSP.TC ---
Today's Communication/Plan
-
po abx
dc home
Assessment / Plan
Assessment / Plan
General: Well Developed, Well Nourished, Conversant and Pain
HEENT: NormoCephalic, Moist mucous membranes, [place] Conjunctivae, Nose Appears Normal, Ears Appear Normal and Other (encrusting lesion to lower lip, with erythema and no drainage. Left side jaw line edema resolved. Mild chin erythema and edema
Respiratory: Clear
Cardiac: S1/S2 and Regular Rhythm
Breast: Deferred by me
GI: Soft, Non Tender, Non Distended and Normal Bowel Sounds; No Organomegaly
Rectal: Deferred by Provider
Genito-urinary: Deferred by me
Musculoskeletal: No Clubbing, No Cyanosis and No Edema
Skin: No Rash
Neuro: Awake, Alert, AO x 3 and Nonfocal/grossly intact
Psych: Calm and Intact Judgment/Insight
#L Lip / Facial Cellulitis/MRSA bacteremia
Facial bones CT: 1. Moderate soft tissue edema over the anterior and left anterior jaw/mandible soft tissues consistent with cellulitis. No loculated fluid collections.
Wound Cx from ER w/MRSA
-After initial lesion with started on the lower lip patient went to dermatology status post lancing. Took 3 dose of Bactrim without improvement and was recommended to come into the hospital.
- IV vancomycin. Appreciate pharmacy managing dosing.
- Ice packs PRN
- pain regimen
- seems only 1 set of Bcx checked on admission-positive for MRSA. Susceptibility noted
- Surveillance culture ordered and in lab remains negative so far
- wound culture susceptibility noted sensitive to vancomycin.
- Leukocytosis resolved.
- ECHO negative for vegetation. Warm compresses recommended BID.
- ID ID following. Plan to transition to linezolid bid on dc.
#hypothyroidism
- continue levothyroxine
#GERD
- continue famotidine and omeprazole
#Mild hyperkalemia
-resolved.
d/w with spouse at bedside on 12/01/2024
DVT ppx-lovenox
d/w with ID. okay to dc.
More than 30 minutes spent in discharge including
Final examination of the patient
Summarizing hospital stay
Instructions for continuing care to all relevant caregivers
Preparation of discharge records, prescriptions, and referral forms
Total time spent (in minutes):55
Anticipated Discharge: Today
Subjective/Interval History
-
Date of Service: December 03, 2024
improvement in swelling
lower lip with no drainage
Objective Data
-
Labs:
Laboratory Results
12/03/24
05:23
WBC 5.2
Hgb 12.5
Hct 36.2 L
Plt Count 436 H
Sodium 142
Potassium 4.6
Chloride 107
Carbon Dioxide 29
BUN 9
Creatinine 0.7
Glucose 97
Calcium 9.4
Vital Signs:
Vital Signs
Temp Pulse Resp BP Pulse Ox
98.7 F 66 16 122/75 98
12/03/24 07:42 12/03/24 07:42 12/03/24 07:42 12/03/24 07:42 12/03/24 07:42
I&O
12/02/24 12/03/24 12/04/24
06:59 06:59 06:59
Intake Total 0 / 0 1440 / 1440
Balance 0 / 0 1440 / 1440
--- NOTE | 2024-12-03 10:06 | W.DCSUMMARY ---
Discharge Summary
Discharge Data
Date of Admission: 11/29/24
Date of Discharge: 12/03/24
-
Pending Results: No
Hospital Course
53-year-old female past medical history of hypothyroidism, GERD who is presenting with left lower lip lesion. Patient wound was drained in the ER. Wound culture with positive for MRSA. Patient was started on IV vancomycin. 1 set of blood culture
were checked in the ER which came back positive for MRSA and thus infectious disease was consulted. Echo was negative for vegetation. Surveillance cultures were checked. Patient was continued IV vancomycin. Patient with significant improvement
in erythema. Patient edema on the jawline resolved. Patient blood culture sensitivity was noted. Patient remained afebrile. Leukocytosis resolved. Patient will be transition to linezolid upon discharge.
Discharge Plan
-
Patient Disposition: Home (Routine Discharge)
Discharge Diagnosis/Procedures: MRSA abscess left lower lip with cellulitis s/p drainage in ED
Uncomplicated MRSA bacteremia
Leukocytosis resolved.
Condition: Fair
Diet: Regular
Activity: As tolerated
Driving Restrictions: As prior to admission
Activity Restrictions/Additional Instructions:
Avoid tyramine-rich food products while on the antibiotic Linezolid.
Referrals:
Jazmín Rey CRNP [Family Provider] -
Prescriptions:
New
linezolid 600 mg tablet
600 mg PO BID Qty: 21 0RF
fluconazole 150 mg tablet
150 mg PO ONCE PRN (Reason: yeast infection) Qty: 1 0RF
Continued
famotidine 40 mg Tablet
40 mg PO HS
acetaminophen [Tylenol Extra Strength] 500 mg Tablet
1,000 mg PO Q6HPRN PRN (Reason: mild pain)
ibuprofen [Advil] 200 mg Tablet
400 mg PO Q6HPRN PRN (Reason: mild pain)
levothyroxine 200 mcg Tablet
200 mcg PO DAILY
omeprazole 20 mg Capsule,Delayed Release(Dr/Ec)
20 mg PO DAILY
semaglutide
1 dose SC TH
Patient Comments:
11/29/24: Patient gets compouded online from [employer], unable to get/confirm current dosage.
Discontinued
sulfamethoxazole-trimethoprim [Bactrim DS] 800-160 mg Tablet
1 tab PO BID
mupirocin 2 % Ointment
1 applic TOPICAL BID
Discharge Orders:
Discharge Patient (As Directed); Ordered 12/03/24
Ordered By: Og Pierce
Discharge Date and Time
Discharge Date/Time: 12/03/24 11:23
Print Language: UZBEK
--- NOTE | 2024-12-03 10:20 | CM ---
Chart reviewed home today no needs.
Plan; Home no needs.
== END 2024-12-03 11:23 | disposition home or self-care (01) | DRG 872 ==
LOC: 4 WEST ACU 22:04
PROVIDERS: Emergency Medicine; Nurse Practitioner Family; ADMITTING PHYSICIAN Hospitalist; ATTENDING PHYSICIAN Hospitalist; CONSULT PHYSICIAN Internal Medicine Infectious Disease; EMERGENCY PHYSICIAN Emergency Medicine; FAMILY PHYSICIAN Nurse Practitioner Family
PROC: 0C913ZZ Drainage of Lower Lip, Percutaneous Approach (ICD-10-PCS; 2024-11-29)
DX: A41.02 Sepsis due to Methicillin resistant Staphylococcus aureus (principal); L03.211 Cellulitis of face; K13.0 Diseases of lips; E03.9 Hypothyroidism, unspecified; K21.9 Gastro-esophageal reflux disease without esophagitis; Z79.890 Hormone replacement therapy; Z83.3 Family history of diabetes mellitus; Z88.0 Allergy status to penicillin; E87.5 Hyperkalemia
CPT/HCPCS: 10060; 70487; 80048; 80053; 80202; 85025; 85027; 87040; 87070; 87147; 87150; 87186; 87205; 93306; 96365; 96366; 96367; 96375; 99285; Q9967